=== PATIENT | male | born 1990 | race African-American/Black ===

== ENCOUNTER 2016-05-18 07:35 | Emergency (ER) | payer SELFPAY ==
[~2016-05-18] VITALS: Ht 177.8 cm; Wt 110.0 kg
[2016-05-18 07:39] VITALS: Ht 177.8 cm; Wt 110.0 kg
[2016-05-18 08:14] LABS: URINE BLOOD (Dip) POC Trace-lysed (NEGATIVE)
--- NOTE | 2016-05-18 08:26 | ERD ---
ER Documentation Chief Complaint Date/Time DATE: 05/18/16 TIME: 08:18 Chief Complaint right foot tingling x2 weeks and left hand tingling x3 days and chest pain HPI This is a 25-year-old male presenting for tingling in his right foot for 2 weeks , tingling in his left hand for 1 week, midsternal chest pain which began yesterday and burning while urinating for 1.5 weeks. The patient reports having a new female sexual partner approximately 2 weeks ago and was using a condom however it broke during intercourse. The patient began to notice the burning while urinating shortly after that event. He denies any hematuria or back pain. Additionally the patient reports a new job with increased stress and lack of sleep. He does not have a history of anxiety or depression. He denies any homicidal ideation. He denies any suicidal ideation. The patient uses marijuana daily but has refrained after his symptoms began. He notes mild improvement in the tingling symptoms after refraining from marijuana. Currently the patient denies any headache, shortness of breath, or any other symptoms. There are no other alleviating or exacerbating factors at this time. ROS All systems reviewed and are negative except as per history of present illness. Medications Home Meds Active Scripts Azithromycin* (Zithromax*) 500 Mg Tablet, 1000 MG PO ONCE, #1 TAB Prov:GAURAV ALVARES PA-C 05/18/16 Allergies Allergies: Coded Allergies: No Known Allergy (Unverified , 05/18/16) PMhx/Soc Medical and Surgical Hx: pt denies Medical Hx, pt denies Surgical Hx Hx Alcohol Use: No Hx Substance Use: No Hx Tobacco Use: No Physical Exam Vitals Vital Signs Date Time Temp Pulse Resp B/P Pulse Ox O2 Delivery O2 Flow Rate FiO2 05/18/16 07:39 98.0 75 18 147/90 99 Physical Exam Const: The patient is resting comfortably in no acute distress. Head: Atraumatic Eyes: Normal Conjunctiva ENT: Normal External Ears, Nose and Mouth. Neck: Full range of motion. No meningismus. Resp: Clear to auscultation bilaterally Cardio: Regular rate and rhythm, no murmurs Abd: Soft, non tender, non distended. Normal bowel sounds Skin: No petechiae or rashes Back: No midline or flank tenderness Ext: No cyanosis, or edema Neur: The patient is neurovascularly intact, lower extremity reflexes are 5 out of 5, sensation is intact in bilateral upper and lower extremities. There are no strength deficits in bilateral upper or lower extremities Psych: Slightly anxious affect. No suicidal or homicidal ideation. MSK: Reproducible chest wall tenderness on palpation. Results 24 hrs Laboratory Tests Test 05/18/16 08:14 Bedside Urine Blood Trace-lysed Bedside Urine Glucose (UA) Negative Bedside Urine Ketones (LAB) Negative Bedside Urine Leukocyte Esterase (L Negative Bedside Urine Nitrite (LAB) Negative Bedside Urine Protein (LAB) 1+ Bedside Urine pH (LAB) 6.0 Current Medications Medications (Trade) Dose Ordered Sig/[place] Route PRN Reason Start Time Stop Time Status Last Admin Dose Admin Ceftriaxone Sodium (Rocephin) 250 mg ONCE ONCE IM 05/18/16 08:30 05/18/16 08:31 DC 05/18/16 08:13 Lidocaine (Xylocaine 1% (Mdv) 20 ml) 20 ml ONCE ONCE SC 05/18/16 08:30 05/18/16 08:31 DC 05/18/16 08:13 Procedures/MDM ED course: Urine dip: see results, GC chlamydia culture sent. EKG: Interpreted by ED physician Rate/Rhythm: Normal Sinus Rhythm, rate of 80bpm QRS, ST, T-waves: No changes consistent w/ acute ischemia Impression: No evidence of ischemia or arrhythmia 250 mg Rocephin given IM. MDM: 25-year-old male presenting to the emergency department for dysuria and chest pain. On physical examination the patient does have reproducible chest wall tenderness and no neurological deficits. A urine dip is negative for signs of urinary tract infection. A GC chlamydia will be sent to the lab to check for sexually transmitted diseases. A 12-lead EKG shows no signs of ischemia or acute myocardial infarction. At this time I believe the patient's chest pain is related to anxiety about the possibility of having a sexually transmitted infection. The chest pain is unlikely cardiac in nature based off of history, physical examination, and twelve-lead EKG results. I do not feel the patient required a further cardiac workup at this time based off of the clinical findings. I have low suspicion for aortic dissection, cardiac tamponade, pulmonary embolism, pneumothorax, or other cardiac or pulmonary abnormalities due to the patient reporting his symptoms are present with stress and his oxygen saturation is 99% on room air. Blood pressure slightly elevated most likely due to his anxious state. The patient's dysuria is likely due to sexually transmitted infection and he will be treated empirically with 250 mg of Rocephin and 1 g of azithromycin. The patient was advised to follow-up with a primary care physician for further sexually transmitted infection testing. The patient was given a handout regarding safe sex practices and he has to refrain from all sexual intercourse for at least 1 week after symptoms resolve. Departure Diagnosis: Primary Impression: Dysuria Condition: Stable GAURAV ALVARES PA-C May 18, 2016 08:26
[2016-05-18] MEDS ORDERED: AZIT500T3 PO (08:27)
[2016-05-18] MEDS ORDERED: LIDOCAINE 1% (MDV) 20 ML INJ SC ONE (08:30)
[2016-05-18] MEDS ORDERED: CEFTRIAXONE 250 MG INJ IM ONE (08:30)
== END 2016-05-18 08:37 | disposition home or self-care (01) ==
LOC: FTE 07:35
DX: R30.0 Dysuria (principal); R07.89 Other chest pain
CPT/HCPCS: 81003; 87591; 93005; 96372; 99284; J0696